=== PATIENT | female | born 1985 | race Caucasian/White ===

== ENCOUNTER 2017-08-02 02:07 | Inpatient (IN) | payer SELFPAY ==
[~2017-08-02] VITALS: Ht 172.7 cm; Wt 85.3 kg
[2017-08-02 02:44] LABS: Urine Bilirubin Negative (Negative); Urine Blood 2+ /uL (Negative); Urine Color Orange (Yellow); Urine Glucose Normal (Normal); Urine Ketone 1+ (Negative); Urine Mucus FEW (None Seen); Urine Nitrite Negative (Negative); Urine RBC 1571 /hpf (0 - 4); Urine Squamous Epithelial Cell MOD /hpf (<5); Urine Urobilinogen Normal (Negative); Urine WBC Clumps PRESENT /hpf (None Seen)
[2017-08-02 03:03] LABS: Basophils # (auto) 0.1 uL; Basophils % (auto) 0.5 % (0.0-2.0); CONDITION Y; Eosinophils # (auto) 0 uL; Eosinophils % (auto) 0.3 % (0.0-7.0); Hematocrit 37.1 % (36.0-46.0); Hemoglobin 12.4 g/dL (12.2-16.2); Lymphocytes # (auto) 2.6 uL; Lymphocytes % (auto) 21.6 % (10.0-50.0); Mean Corpuscular Hemoglobin 31.5 pg (28.0-32.0); Mean Corpuscular Hgb Conc. 33.5 g/dL (32.0-36.0); Mean Platelet Volume 9.1 fL (7.4-10.4); Monocytes # (auto) 0.8 uL; Monocytes % (auto) 6.3 % (0.0-12.0); Neutrophils # (auto) 8.6 uL; Neutrophils % (auto) 71.3 % (37.0-80.0); Platelet Count (auto) 348 10^3/uL (140-450); Red Cell Distribution Width 13.8 % (11.6-16.0)
[2017-08-02 03:17] LABS: INR 0.87 (0.9-1.15); Partial Thromboplastin Time 25.6 sec (22.64-33.71); Prothrombin Time 9.5 sec (9.37-12.3)
[2017-08-02 03:20] LABS: Albumin 2.6 g/dL (3.4-5.0); BUN/Creatinine Ratio 12.8; Calcium 9.6 mg/dL (8.5-10.1)
[2017-08-02 03:23] LABS: Bilirubin, Total 0.4 mg/dL (0.2-1.0); Total Protein 6.6 g/dL (6.4-8.2)
[2017-08-02] MEDS ORDERED: CLINDAMYCIN 900MG IV 50 ML IV ONE (04:24)
[2017-08-02] MEDS ORDERED: LACTATED RINGER'S 1,000 ML IV SCH (04:29)
[2017-08-02] MEDS ORDERED: LACT. RINGERS/OXYTOCIN 20UNITS 1,000 ML IV SCH (04:29)
[2017-08-02] MEDS ORDERED: METHYLERGONOVINE MALEATE 0.2 MG/ML AMP IM ONE (04:30)
[2017-08-02] MEDS ORDERED: PHISODERM TOP SOLN 240ML BTL TOP PRN (04:30)
[2017-08-02] MEDS ORDERED: NALBUPHINE HCL 10 MG/1ml INJECTION IV PRN (04:30)
[2017-08-02] MEDS ORDERED: LACT. RINGERS/OXYTOCIN 20UNITS 1,000 ML IV ONE ×2 (04:30→06:08)
[2017-08-02] MEDS ORDERED: METHYLERGONOVINE MALEATE 0.2 MG/ML AMP IM PRN (04:30)
[2017-08-02] MEDS ORDERED: DERMOPLAST 60ML BOTTLE TOP PRN (04:30)
[2017-08-02] MEDS ORDERED: DERMOPLAST 60ML BOTTLE TOP ONE (04:30)
[2017-08-02] MEDS ORDERED: WITCH HAZEL-GLYCERIN PAD TOP PRN (04:30)
[2017-08-02] MEDS ORDERED: PHISODERM TOP SOLN 240ML BTL TOP ONE (04:30)
[2017-08-02] MEDS ORDERED: LIDOCAINE 2%HCL (LOCAL ANESTH.) INJ 20ML MDV IJ ONE (04:30)
[2017-08-02] MEDS ORDERED: LIDOCAINE 2%HCL (LOCAL ANESTH.) INJ 20ML MDV ONE (04:30)
[2017-08-02] MEDS ORDERED: WITCH HAZEL-GLYCERIN PAD TOP ONE (04:30)
[2017-08-02] MEDS ORDERED: CLINDAMYCIN 900MG IV 50 ML IV SCH (06:00)
[2017-08-02] MEDS ORDERED: ACETAMINOPHEN 325 MG TAB PO PRN (08:30)
[2017-08-02] MEDS ORDERED: IBUPROFEN 600 MG TAB PO PRN (08:30)
[2017-08-02] MEDS ORDERED: TETANUS-DIPTH-ACEL PERTUSSIS 0.5ML SYRG IM ONE (10:15)
[2017-08-02 12:00] VITALS: BP 104/81
[2017-08-02] MEDS ORDERED: PRENCAP61 PO (12:36)
[2017-08-02 16:00] VITALS: BP 126/80
[2017-08-02 19:00] VITALS: BP 131/68
[2017-08-02 23:30] VITALS: BP 117/68
[2017-08-03 03:23] VITALS: BP 127/72
[2017-08-03 08:02] VITALS: BP 104/68
[2017-08-03 12:00] VITALS: BP 134/86
[2017-08-03 16:15] VITALS: BP 115/69
== END 2017-08-03 18:35 | disposition home or self-care (01) | DRG 775 ==
LOC: OBSVTOIN 02:07 → LDRP 02:07 → EDBD 02:07 → LDRP 04:57
PROVIDERS: ADMIT Specialist; ATTEND Specialist
PROC: 10E0XZZ Delivery of Products of Conception, External Approach (ICD-10-PCS; principal; 2017-08-02)
DX: O99.324 Drug use complicating childbirth (principal); F15.10 Other stimulant abuse, uncomplicated; F12.10 Cannabis abuse, uncomplicated; Z37.0 Single live birth; Z3A.37 37 weeks gestation of pregnancy; Z23 Encounter for immunization
CPT/HCPCS: 36415; 59025; 59409; 73600; 73630; 76805; 80053; 80307; 81001; 84550; 85025; 85610; 85730; 86592; 86703; 86762; 86850; 86900; 86901; 87340; 90715; 96361; 96366; 96372; J2590; J3490